=== PATIENT | female | born 2000 | race Caucasian/White ===

== ENCOUNTER 2024-06-30 23:53 | Emergency (ER) | payer SELFPAY ==
[~2024-06-30] VITALS: Ht 160 cm; Wt 72.7 kg
[~2024-06-30 23:53] MED LIST: CEPHALEXIN500 M1 PO; LORTAB 5/500 501 TAB PO; NORCO 325 MG-7.1 TAB PO; PHENERGAN 25 TA25 MG PO; TYLENOL 325MG325 MG PO
[2024-07-01 00:23] LABS: BASO % 0.3 % (0.0-2.0); EOS # 0.1 K/mm3 (0.0-0.7); GRAN # 9.6 K/mm3 (1.4-6.5); GRAN % 78.7 % (42.2-75.2); HEMATOCRIT 37.7 % (37.0-47.0); HEMOGLOBIN 12.2 g/dl (12.5-16.0); LYMPH # 1.8 K/mm3 (1.2-3.4); LYMPH % 14.9 % (20.0-51.0); MEAN CELL VOLUME 81 fl (80.0-100.0); MEAN CORPUSCULAR HEMOGLOBIN 26 pg (27-31); MEAN CORPUSCULAR HGB CONC 32 g/dl (33.0-37.0); MEAN PLATELET VOLUME 8.5 fl (7.4-10.4); MONO # 0.6 K/mm3 (0.1-0.6); MONO % 4.7 % (1.7-9.3); PLATELET COUNT 317 K/mm3 (130-400); RED BLOOD COUNT 4.65 M/mm3 (4.10-5.30); REDCELL DISTRIBUTION WIDTH-CV 13.3 % (11.5-14.5)
[2024-07-01] MEDS ORDERED: NS 1,000 ML IV ONE (00:30)
[2024-07-01 00:40] LABS: ALANINE AMINOTRANSFERASE 12 U/L (0-55); ALBUMIN 3.8 g/dL (3.5-5.0); ALKALINE PHOSPHATASE 65 U/L (40-150); ANION GAP 12 mmol/L (7-16); AST,SGOT 15 U/L (5-34); BILIRUBIN,TOTAL 0.4 mg/dL (0.2-1.2); CHLORIDE 105 mEq/L (98-107); CREATININE, serum 0.74 mg/dL (0.57-1.11); GLUCOSE 111 mg/dL (70-99); SODIUM 139 mEq/L (136-145); TOTAL PROTEIN 6.6 g/dl (6.2-8.1)
[2024-07-01 00:44] LABS: ALCOHOL(ethanol),MEDICAL < 10 mg/dL (0-10); POTASSIUM 2.9 mEq/L (3.5-4.5); SALICYLATE < 5.0 mg/dL (15.0-30.0)
[2024-07-01] MEDS ORDERED: Magnesium Oxide 400 MG TAB PO ONE (00:45)
[2024-07-01 00:57] LABS: BLOOD UREA NITROGEN < 5 mg/dL (7-19)
[2024-07-01 00:59] LABS: TSH w REFLEX 2.836 uIU/mL (0.350-4.940)
[2024-07-01 02:26] LABS: COLLECTION METHOD CLEAN CATCH
[2024-07-01 02:27] LABS: URINE APPEARANCE CLEAR (CLEAR/HAZY); URINE COLOR YELLOW (YELLOW); URINE GLUCOSE NEGATIVE (NEGATIVE); URINE KETONE NEGATIVE (NEGATIVE); URINE NITRATE NEGATIVE (NEGATIVE); URINE PROTEIN(semi-quant) NEGATIVE (NEGATIVE); URINE UROBILINOGEN 0.2 E.U/dL (0.2-1.0)
[2024-07-01 02:29] LABS: URINE BLOOD 2+ (NEGATIVE)
[2024-07-01 02:37] LABS: TRICYCLIC ANTIDEPRESS URINE NEGATIVE (NEGATIVE)
[2024-07-01] MEDS ORDERED: Magnesium Sulfate 4% 50 ML IV ONE (03:00)
[2024-07-01] MEDS ORDERED: Ondansetron 4 MG/2 ML VIAL IV ONE (03:00)
[2024-07-02] MEDS ORDERED: ATARAX 25MG25 MG/TAB PO (11:01)
[2024-07-02] MEDS ORDERED: ABILIFY 15MG TA15 MG PO (11:01)
[2024-07-02] MEDS ORDERED: ZOLOFT 100MG100 MG PO (11:02)
[2024-07-02] MEDS ORDERED: DESYREL 100MG100 MG PO (11:02)
[2024-07-03 07:49] VITALS: BP 144/83; PULSE 106; TEMP 98.6
== END 2024-07-03 07:45 ==
LOC: COL.ER 23:53
PROVIDERS: Emergency Medicine
DX: T43.212A Poisoning by selective serotonin and norepinephrine reuptake inhibitors, intentional self-harm, initial encounter (principal)
CPT/HCPCS: G0463; J2405; J3475; J7030